=== PATIENT | female | born 1950 | race Caucasian/White ===

== ENCOUNTER 2018-10-25 09:36 | Emergency (ER) | payer MEDICARE, OTHER ==
[~2018-10-25] VITALS: Ht 162.6 cm; Wt 63.0 kg
[2018-10-25 09:43] VITALS: BP 148/74
[2018-10-25] MEDS ORDERED: mag hydrox/Alum hydrox/simeth 30ml oral suspension PO ONE (10:15)
[2018-10-25] MEDS ORDERED: LIDOcaine Viscous 15ml cup PO ONE (10:15)
[2018-10-25 10:30] LABS: BASOPHILS % (AUTO) 0.3 % (0-1); EOSINOPHILS % (AUTO) 0.6 % (0-6); HEMATOCRIT 42.3 % (35.0-45.0); HEMOGLOBIN 14.5 g/dl (12.0-16.0); LYMPHOCYTES # (AUTO) 0.8 X10'3 (1.1-4.8); LYMPHOCYTES % (AUTO) 22.9 % (21-51); MEAN CORPUSCULAR HEMOGLOBIN 33.1 PG (27.0-31.0); MEAN CORPUSCULAR HGB CONC 34.3 g/dL (33.0-36.5); MEAN CORPUSCULAR VOLUME 96.8 FL (78-98); MEAN PLATELET VOLUME 8.6 FL (7.4-10.4); MONOCYTES # (AUTO) 0.3 X10'3 (0-0.9); MONOCYTES % (AUTO) 8.6 % (2-12); NEUTROPHILS # (AUTO) 2.3 X10'3 (1.8-7.7); NEUTROPHILS % (AUTO) 67.6 % (42-75); PLATELET COUNT 207 X10'3 (140-440); RED BLOOD COUNT 4.37 X10'6 (4.20-5.60); RED CELL DISTRIBUTION WIDTH 12.7 % (11.5-14.5); WHITE BLOOD COUNT 3.4 X10'3 (4.5-11.0)
[2018-10-25] MEDS ORDERED: sucralfate 1gm/10ml UD suspension PO ONE (10:30)
[2018-10-25 11:21] LABS: CLARITY,URINE CLEAR (Clear); COLOR,URINE STRAW (Yellow); GLUCOSE, URINE NEGATIVE (Neg); KETONES,URINE NEGATIVE (Neg); LEUKOCYTE ESTERASE ,URINE TRACE (Neg); NITRITES, URINE NEGATIVE (Neg); OCCULT BLOOD,URINE NEGATIVE (Neg); PH,URINE 6.5 (4.8-8.0); PROTEIN,URINE NEGATIVE (Neg); UROBILINOGEN,URINE 0.2 E.U/dL (0.2-1.0)
[2018-10-25 11:27] LABS: UA COLLECTION TYPE CLN CATCH MIDSTREAM
[2018-10-25 11:32] LABS: BACTERIA,URINE FEW /HPF (Neg); MUCUS STRANDS NONE SEEN /LPF (Neg); RBC,URINE 0-2 /HPF (0-2); SQUAMOUS EPITHELIAL CELL,UR FEW /LPF (FEW); WBC,URINE 0-4 /HPF (0-4)
[2018-10-25 12:20] LABS: ALANINE AMINOTRANSFERASE 36 U/L (12-78); ALBUMIN/GLOBULIN RATIO 1.2 (1.1-1.5); ALKALINE PHOSPHATASE 77 IU/L (46-116); ANION GAP 7 (8-16); ASPARTATE AMINO TRANSFERASE 20 U/L (10-37); BLOOD UREA NITROGEN 12 MG/DL (7-18); BUN/CREATININE RATIO 13.8 (6.6-38.0); CALCIUM 9.3 MG/DL (8.5-10.1); CHLORIDE 104 MMOL/L (99-107); CREATININE 0.87 MG/DL (0.40-0.90); GLUCOSE 101 MG/DL (70-104); POTASSIUM 3.9 MMOL/L (3.5-5.1); SODIUM 142 MMOL/L (135-145); TOTAL CARBON DIOXIDE 30.7 MMOL/L (24-32); TOTAL PROTEIN 7.3 G/DL (6.4-8.2); eGFR 65 ML/MIN
[2018-10-25 12:21] LABS: BILIRUBIN,TOTAL 0.4 MG/DL (0.1-1.0)
[2018-10-25 12:29] LABS: LIPASE 85 U/L (73-393); MAGNESIUM 2.2 MG/DL (1.5-2.4)
[2018-10-25] MEDS ORDERED: GABA-532 PO (14:12)
== END 2018-10-25 14:35 | disposition home or self-care (01) ==
LOC: ER 09:37
DX: R10.32 Left lower quadrant pain (principal); R10.31 Right lower quadrant pain; Z90.710 Acquired absence of both cervix and uterus
CPT/HCPCS: 36415; 80053; 81001; 83690; 83735; 84484; 85025; 87088; 99284

== ENCOUNTER 2022-04-10 09:12 | Day surgery (SDC) | payer BC, SELFPAY ==
[2022-04-06 16:34] LABS: BASOPHILS % (AUTO) 0.6 % (0-1); EOSINOPHILS # (AUTO) 0.2 X10'3 (0-0.9); EOSINOPHILS % (AUTO) 3.8 % (0-6); LYMPHOCYTES # (AUTO) 1.2 X10'3 (1.1-4.8); LYMPHOCYTES % (AUTO) 22.6 % (21-51); MEAN CORPUSCULAR HEMOGLOBIN 33.8 PG (27.0-31.0); MEAN CORPUSCULAR HGB CONC 34.8 g/dL (33.0-36.5); MEAN CORPUSCULAR VOLUME 97.1 FL (78-98); MONOCYTES # (AUTO) 0.5 X10'3 (0-0.9); MONOCYTES % (AUTO) 9.4 % (2-12); NEUTROPHILS # (AUTO) 3.3 X10'3 (1.8-7.7); NEUTROPHILS % (AUTO) 63.6 % (42-75); PRE OP HEMATOCRIT 42.2 % (35.0-45.0); PRE OP HEMOGLOBIN 14.7 g/dL (12.0-16.0); PRE OP PLATELET COUNT 189 X10'3 (140-440); RED BLOOD COUNT 4.34 X10'6 (4.20-5.60); RED CELL DISTRIBUTION WIDTH 12.5 % (11.5-14.5)
[2022-04-06 16:43] LABS: ALBUMIN/GLOBULIN RATIO 1.3 (1.1-1.5); ALKALINE PHOSPHATASE 83 IU/L (46-116); BLOOD UREA NITROGEN 19 MG/DL (7-18); BUN/CREATININE RATIO 24.4 (6.6-38.0); CHLORIDE 106 MMOL/L (99-107); CREATININE 0.78 MG/DL (0.40-0.90); PRE OP ALT 25 U/L (30-65); PRE OP ANION GAP 6 (8-16); PRE OP AST 18 U/L (10-37); PRE OP BILIRUB, TOTAL 0.3 MG/DL (0.0-1.0); PRE OP GLUCOSE 97 MG/DL (70-104); PRE OP POTASSIUM 3.9 MMOL/L (3.4-5.1); PRE OP SODIUM 144 MMOL/L (135-145); TOTAL CARBON DIOXIDE 32.4 MMOL/L (24-32); eGFR 73 ML/MIN
[~2022-04-10] VITALS: Ht 162.6 cm; Wt 64.8 kg
[2022-04-10] VITALS (10 sets, daily range): BP systolic 114–160; BP diastolic 65–87
[~2022-04-10 09:12] MED LIST: LEVO112T52 PO; ceFAZolin inj. 2,000 MG in dextrose 5%-water 100 ML IV ONE; famotidine 20mg tablet PO ONE; mineral oil/petrolatum ophthal oint ONE; polyvinyl alcohol ophthalmic drops 15ml bottle ONE; ringers solution, lacted 1,000 ML IV SCH
[2022-04-10] MEDS ORDERED: LIDOcaine 1% 30ml preserv. free vial ONE (10:24)
[2022-04-10] MEDS ORDERED: epiNEPHrine 1 mg/ml inj ONE (10:24)
[2022-04-10] MEDS ORDERED: bacitracin 15gm ointment TP ONE (10:34)
[2022-04-10] MEDS ORDERED: morphine 2 MG/ML inj. syringe IV PRN (10:45)
[2022-04-10] MEDS ORDERED: acetaminophen 1,000mg/100ml IV 100 ML IV PRN (10:45)
[2022-04-10] MEDS ORDERED: ondansetron/PF 4mg/2ml inj IV PRN (10:45)
[2022-04-10] MEDS ORDERED: ringers solution, lacted 1,000 ML IV SCH (10:45)
[2022-04-10] MEDS ORDERED: morphine 4 MG/ML inj SYRINge IV PRN (10:45)
[2022-04-10] MEDS ORDERED: hydrALAZINE 20mg/ml inj. IV PRN (10:45)
[2022-04-10] MEDS ORDERED: meperidine/PF 25mg/ml syringe IV PRN ×3 (10:45)
[2022-04-10] MEDS ORDERED: proCHLORperazine 10 MG/2 ml inj IV PRN (10:45)
[2022-04-10] MEDS ORDERED: labetalol 20mg/4ml (5mg/ml) syringe IV PRN (10:45)
[2022-04-10] MEDS ORDERED: midazolam 1 mg/ML 2ml injection ONE (10:57)
[2022-04-10] MEDS ORDERED: fentaNYL /PF 50mcg/ml 5ml ampule ONE (10:58)
[2022-04-10] MEDS ORDERED: BUPIVAcaine 0.25% w/Epi /PF 30ml vial ONE (11:58)
[2022-04-10] MEDS ORDERED: ondansetron/PF 4mg/2ml inj ONE (12:02)
[2022-04-10] MEDS ORDERED: propofol inj 20 ML IV ONE ×2 (12:02)
[2022-04-10] MEDS ORDERED: LIDOcaine 2% (20mg/ml) 5ml vial ONE (12:02)
[2022-04-10] MEDS ORDERED: dexamethasone sod phosphate 4mg/ml inj. ONE (12:02)
[2022-04-10] MEDS ORDERED: ePHEDrine 50MG/ML INJ. ONE (12:38)
[2022-04-10] MEDS ORDERED: 0.9 % SODIUM CHLORIDE 10 ML VIAL ONE (13:10)
--- NOTE | 2022-04-10 13:29 | NUR ---
Received from OR via [facility], accompanied by Anesthesiologist and report given by NEIL Anesthesiologist. PATIENT IS UNCONSCIOUS WITH ORAL AIRWAY, NO S/S OF PAIN, VSS, 20G PIV TO LEFT HAND, BILATERAL UPPER LID SUTURES DRESSING C/D/I. FOREHEAD KERLIX AND IMAN WRAP DRESSING C/D/I WITH DRAINING SEROSANGUINEOUS IN DAVID DRAIN. Addendum: 04/10/22 at 1356 by Pasquale Perez RN Amended: Links added.
[2022-04-10] MEDS ORDERED: acetaminophen 325mg tablet PO PRN ×2 (15:10→15:15)
--- NOTE | 2022-04-10 15:24 | NUR ---
ALL DISCHARGE CRITERIA HAS BEEN MET. VSS, PAIN AT A TOLERABLE LEVEL, ABLE TO SAFELY AMBULATE AND TRANSFER SELF. IV TAKEN OUT WITHOUT ANY COMPLICATIONS. ALL DISCHARGE INSTRUCTIONS COVERED WITH PATIENT AND ALL QUESTIONS ANSWERED. PATIENT TAKEN OUT VIA WHEELCHAIR WITH ALL BELONGINGS TO PERSONAL VEHICLE WHERE FRIEND DROVE PATIENT HOME. Addendum: 04/10/22 at 1528 by Pasquale Perez RN Amended: Links added.
== END 2022-04-10 15:24 | disposition home or self-care (01) ==
LOC: PAS 09:12
PROVIDERS: ATTEND Specialist
DX: H02.831 Dermatochalasis of right upper eyelid (principal); H02.834 Dermatochalasis of left upper eyelid; Z41.1 Encounter for cosmetic surgery; H02.835 Dermatochalasis of left lower eyelid; H02.832 Dermatochalasis of right lower eyelid; Z90.710 Acquired absence of both cervix and uterus; Z98.890 Other specified postprocedural states; Z79.899 Other long term (current) drug therapy
CPT/HCPCS: 15821; 15823; 36415; 80053; 82948; 85025; 87811; 93005; A6402; J0171; J0690; J1100; J2250; J2405; J2704; J3010; J3490; J7030; J7060; J7120; S0020; Z7506; Z7508; Z7512; A4215; A4618; A6410; A6446; A6455; A7000